=== PATIENT | male | born 1950 | race African-American/Black ===

== ENCOUNTER 2024-03-08 13:46 | Emergency (ER) | payer OTHER ==
[~2024-03-08] VITALS: Ht 175.3 cm; Wt 81.6 kg
[2024-03-08 15:00] VITALS: BP 146/74; TEMP 98.5
[2024-03-08] MEDS ORDERED: GABA-532 PO (15:35)
[2024-03-08] MEDS ORDERED: GLIP2.5T16 PO (15:35)
[2024-03-08] MEDS ORDERED: LOSA50TA39 PO (15:35)
[2024-03-08] MEDS ORDERED: ATOR40TA PO (15:35)
[2024-03-08] MEDS ORDERED: METO25TA6 PO (15:35)
[2024-03-08 15:41] VITALS: O2SAT 100
== END 2024-03-08 15:42 | disposition home or self-care (01) ==
LOC: ER 13:57
DX: I10 Essential (primary) hypertension (principal); E11.9 Type 2 diabetes mellitus without complications; Z86.79 Personal history of other diseases of the circulatory system; Z76.0 Encounter for issue of repeat prescription